=== PATIENT | male | born 1985 | race Caucasian/White ===

== ENCOUNTER 2022-05-04 10:51 | Emergency (ER) | payer OTHER, SELFPAY ==
[2022-05-04 11:06] VITALS: BP 145/53; PULSE 81; RESP 16; TEMP 36.8; O2SAT 99
--- NOTE | 2022-05-04 12:34 | ED.MALEGU ---
HPI - Male Genitourinary General Chief complaint: Urogenital-Male Stated complaint: uti Time Seen by Provider: 05/04/22 12:34 Source: patient Mode of arrival: ambulatory Limitations: no limitations History of Present Illness HPI Narrative: 36 year old male who presents to [facility] care with complaints of 4 day history of intermittent split stream of urine with complaints of burning and pain with urination. Patient denies any fevers, chills or sweats,no CVA tenderness, no perineal pain, no testicular pain or swelling. Patient denies any concern for STD exposure. MD Complaint: dysuria and other (split stream of urine) Related Data Sexually active: Yes Home Medications Medication Instructions Recorded Confirmed adalimumab 20 mg/0.2 mL See Rx Instructions subcut .COMPLEX 07/26/21 05/04/22 subcutaneous syringe kit (Humira(CF)) Allergies Allergy/AdvReac Type Severity Reaction Status Date / Time No Known Allergies Allergy Mild Verified 05/04/22 12:38 Review of Systems Review of Systems: CONSTITUTIONAL: Denies fever, chills, or sweats. EYES: Denies visual changes, redness, or discharge. ENT: Denies rhinorrhea, congestion, sore throat, or otalgia. CARDIOVASCULAR: Denies chest pain, palpitations, or edema. RESPIRATORY: Denies cough or dyspnea. GASTROINTESTINAL: Denies abdominal pain, nausea, vomiting, or diarrhea. GENITOURINARY: Positive for dysuria no hematuria, split stream of urine SKIN: Denies rash or itching. MUSCULOSKELETAL: Denies back pain, joint pain, or myalgia. NEUROLOGIC: Denies headache, numbness, or weakness. PSYCHIATRIC: Denies anxiety or depression. All systems reviewed & are unremarkable except as noted in HPI and below [facility] Past Medical History Medical History (Updated 05/06/22 @ 15:15 by Demetrice Eaton NP) Ankle fracture right ORIF with plate Ulcerative colitis Family History Family History Father Hypertension Cerebrovascular accident Grandparent Hypertension Social History Social History (Updated 05/06/22 @ 15:11 by Demetrice Eaton NP) Smoking status: Never smoker Alcohol intake: current Substance use: never Gender identity (if verbalized by the patient): Male Comments At time of signature, agree with nursing past medical, surgical, social and family history. There is no relevant family history pertinent to the presenting complaint Exam Narrative: GENERAL: Well-appearing, well-nourished, and in no acute distress. HEAD: Normocephalic, atraumatic. EYES: PERRLA and EOMI. ENT: Nares clear, no rhinorrhea or epistaxis. Mucous membranes moist.TM's normal with good light reflex, throat pink with no lesions or tosnil swelling NECK: Supple.no lymphadenopathy CHEST: Clear to auscultation. No respiratory distress.[id number]% on room air HEART: Regular rate and rhythm. No murmur heard. Normal peripheral pulses. ABDOMEN: Soft, nontender, nondistended, normal active bowel sounds. No CVA tenderness on exam EXTREMITIES: Normal range of motion. No edema. SKIN: Warm, dry, no rash. NEURO: No focal deficits. Alert and oriented x3. Course Course Level of Care: Express Care Visit Vital Signs Vital signs: Vital Signs Temperature 36.8 C 05/04/22 11:06 Pulse Rate 81 05/04/22 11:06 Respiratory Rate 16 05/04/22 11:06 Blood Pressure 145/53 H 05/04/22 11:06 Pulse Oximetry 99 05/04/22 11:06 Oxygen Delivery Room Air 05/04/22 11:06 Temperature 36.8 C 05/04/22 11:06 Pulse Rate 81 05/04/22 11:06 Respiratory Rate 16 05/04/22 11:06 Blood Pressure 145/53 H 05/04/22 11:06 Pulse Oximetry 99 05/04/22 11:06 Oxygen Delivery Room Air 05/04/22 11:06 MDM - Male Genitourinary Differential Diagnosis Differential diagnosis: Likely urinary tract infection, urethritis, prostatitis and other (Split urination) Medical Records Attestation: I reviewed the patient's medical records. Lab Data Attestation: I
== END 2022-05-04 13:00 | disposition home or self-care (01) ==
PROVIDERS: Emergency Provider Registered Nurse
DX: N34.2 Other urethritis (principal)
CPT/HCPCS: 81003; 87086; 99213; G0463

== ENCOUNTER 2022-08-25 15:47 | Emergency (ER) | payer OTHER, SELFPAY ==
[2022-08-25 16:55] VITALS: BP 117/66; PULSE 84; RESP 16; TEMP 36.7; O2SAT 100
--- NOTE | 2022-08-25 17:37 | ED.GENADULT ---
HPI - General Adult General Chief complaint: Upper Respiratory Infection Stated complaint: flu like sx Time Seen by Provider: 08/25/22 17:37 Source: patient Mode of arrival: ambulatory Limitations: no limitations History of Present Illness HPI narrative: 29-year-old male patient presents to the [facility] with complaints of cold symptoms and flu-like symptoms since yesterday. Patient states he has had chills, body aches. Patient states he has not really measured his temperature. Patient states he has had runny nose, slight cough headache. Patient states that his son is at home is positive for flu A. Patient came in to be tested today because he would like Tamiflu. Related Data Home Medications Medication Instructions Recorded Confirmed adalimumab 20 mg/0.2 mL See Rx Instructions subcut .COMPLEX 07/26/21 07/12/22 subcutaneous syringe kit (Humira(CF)) azelastine-fluticasone 137 mcg-50 intranasal 08/25/22 mcg/spray nasal spray Allergies Allergy/AdvReac Type Severity Reaction Status Date / Time No Known Allergies Allergy Mild Verified 07/12/22 13:04 Review of Systems Review of Systems: CONSTITUTIONAL: Denies fever, positive body aches and chills, denies sweats. EYES: Denies visual changes, redness, or discharge. ENT: Positive rhinorrhea, congestion, sore throat, denies otalgia. CARDIOVASCULAR: Denies chest pain, palpitations, or edema. RESPIRATORY: Positive cough, denies dyspnea. GASTROINTESTINAL: Denies abdominal pain, nausea, vomiting, or diarrhea. GENITOURINARY: Denies dysuria or hematuria. SKIN: Denies rash or itching. MUSCULOSKELETAL: Denies back pain, joint pain, or myalgia. NEUROLOGIC: Positive headache, numbness, or weakness. PSYCHIATRIC: Denies anxiety or depression. [facility] Past Medical History Medical History Ankle fracture right ORIF with plate Ulcerative colitis Family History Family History Father Hypertension Cerebrovascular accident Grandparent Hypertension Social History Social History Smoking status: Never smoker Alcohol intake: current Substance use: never Gender identity (if verbalized by the patient): Male Comments At the time of my signature I agree with nursing past medical history, surgical, social, and family history. There is no relevant family history pertinent to the presenting complaint. Exam Narrative: GENERAL: Well-appearing, well-nourished, and in no acute distress. HEAD: Normocephalic, atraumatic. EYES: PERRLA and EOMI. ENT: Nares with erythema and edema noted bilaterally, no rhinorrhea or epistaxis. Mucous membranes moist. Posterior pharynx no erythema, tonsillar enlargement, exudates or lesions present. Bilateral TMs are clear with no erythema or foreign bodies in the canal. NECK: Supple. No lymphadenopathy CHEST: Clear to auscultation. No respiratory distress. Patient able talk in complete sentences. HEART: Regular rate and rhythm. No murmur heard. Normal peripheral pulses. ABDOMEN: Soft, nontender, nondistended, normal active bowel sounds. EXTREMITIES: Normal range of motion. No edema. SKIN: Warm, dry, no rash. NEURO: No focal deficits. Alert and oriented x3. Course Course Level of Care: Express Care Visit Vital Signs Vital signs: Vital Signs Temperature 36.7 C 08/25/22 16:55 Pulse Rate 84 08/25/22 16:55 Respiratory Rate 16 08/25/22 16:55 Blood Pressure 117/66 08/25/22 16:55 Pulse Oximetry 100 08/25/22 16:55 Oxygen Delivery Room Air 08/25/22 16:55 Temperature 36.7 C 08/25/22 16:55 Pulse Rate 84 08/25/22 16:55 Respiratory Rate 16 08/25/22 16:55 Blood Pressure 117/66 08/25/22 16:55 Pulse Oximetry 100 08/25/22 16:55 Oxygen Delivery Room Air 08/25/22 16:55 Vital signs reviewed Medical Decision Making MDM Narrative Medic
== END 2022-08-25 17:56 | disposition home or self-care (01) ==
PROVIDERS: Emergency Provider Nurse Practitioner Family
DX: J06.9 Acute upper respiratory infection, unspecified (principal); Z20.822 Contact with and (suspected) exposure to COVID-19
CPT/HCPCS: 87081; 87426; 87804; 87880; 99213; C9803; G0463

== ENCOUNTER 2023-10-30 08:29 | Emergency (ER) | payer OTHER, SELFPAY ==
--- NOTE | 2023-10-30 09:00 | ED.GENADULT ---
HPI - General Adult General Chief complaint: Upper Respiratory Infection Stated complaint: Sore Throat Source: patient, RN notes reviewed and old records reviewed Mode of arrival: ambulatory Limitations: no limitations History of Present Illness HPI narrative: 38-year-old male presents to [facility] Care with complaint of sore throat and fever that started yesterday. Patient states highest fever was 100.4. Patient taking Sudafed with no relief. Patient denies any other complaints. MD complaint: sore throat Onset (ago): day(s) (1-2) Related Data Allergies Allergy/AdvReac Type Severity Reaction Status Date / Time No Known Allergies Allergy Mild Verified 10/30/23 08:51 Review of Systems Constitutional: Constitutional: Reports no additional constitutional complaints, Denies body ache(s), Denies chills, Reports fatigue, Denies fever(s) and Denies headache(s) Eyes: Eyes: Reports no additional eye complaints and Denies blurry vision ENT: Reports system reviewed and no additional complaints, except as documented, Denies vertigo, Denies dizziness, Denies ear discharge, Denies otalgia, Denies facial pain, Denies headache(s), Denies nasal congestion, Denies nasal discharge, Denies sinus pain, Denies sinus pressure and Reports sore throat Cardiovascular: Cardiovascular: Reports no additional cardiovascular complaints, Denies chest pain, Denies chest pain at rest, Denies rapid heart rate and Denies dyspnea Respiratory: Respiratory: Reports no additional respiratory complaints, Denies chest congestion, Denies cough, Denies pain on inspiration, Denies pain with cough and Denies dyspnea Gastrointestinal: Gastrointestinal: Denies abdominal pain, Denies diarrhea, Denies nausea and Denies vomiting Integumentary/Breasts: Skin/Breast: Denies rash Neurologic: Reports system reviewed and no additional complaints, except as documented, Denies vertigo, Denies dizziness and Denies headache(s) Endocrine: Endocrine: Denies fatigue PMF Past Medical History Medical History Ankle fracture right ORIF with plate Ulcerative colitis Family History Family History Father Hypertension Cerebrovascular accident Grandparent Hypertension Social History Social History Smoking status: Never smoker Alcohol intake: current Substance use: never Gender identity (if verbalized by the patient): Male Comments At the time of my signature, I reviewed and agree with the nursing past medical, surgical, social, and family history. There is no relevant family history pertinent to the patient complaint. Exam Const: General: cooperative, healthy appearing, no acute distress and well nourished Nutritional Appearance: well nourished Orientation/consciousness: patient oriented x3 Limitations: no limitations HENMT: Head: normal to inspection and normocephalic Ears: external ears normal, TM's normal bilaterally, mastoids normal and Abnormal EAC present Face/Nose/Sinus: normal facial exam Face and sinus: normal facial exam Mouth: Yes Normal oral and palatal mucosa present, Yes oropharynx normal and Yes moist mucous membranes Throat: uvula midline, abnormal tonsil bilateral erythema, posterior oropharynx abnormal erythema and no uvular edema Eyes: General: appearance normal, both eyes and all related structures Sclera: sclerae normal Pupils: Equal, round and reactive pupils present Resp: Effort & Inspection: normal respiratory effort, able to speak in complete sentences, no audible wheezes, no cough, no respiratory distress and no retractions Auscultation: clear to auscultation bilaterally, no crackles, no rales, no rhonchi and no wheezes Cardio: Rate: regular rate Rhythm: regular rhythm Skin: General skin exam: normal color and no rashes or lesions noted Neuro: General: patient oriente
[2023-10-30 09:05] VITALS: BP 141/63; PULSE 89; RESP 16; TEMP 37.2; O2SAT 98
== END 2023-10-30 09:30 | disposition home or self-care (01) ==
PROVIDERS: Emergency Provider Registered Nurse
DX: J02.0 Streptococcal pharyngitis (principal)
CPT/HCPCS: 87880; 99213; G0463

== ENCOUNTER 2023-11-18 08:07 | Emergency (ER) | payer OTHER, SELFPAY ==
[2023-11-18 08:16] VITALS: BP 130/62; PULSE 78; RESP 16; TEMP 36.7; O2SAT 99
--- NOTE | 2023-11-18 08:16 | ED.URI ---
HPI - URI/Sore Throat General Chief Complaint: Upper Respiratory Infection Stated Complaint: Sore Throat History of Present Illness HPI Narrative: 38 y/o male presented for c/o sore throat nasal congestion. Denies cough, n/v/d/f/c. Positive strep 2 weeks ago. Related Data Allergies Allergy/AdvReac Type Severity Reaction Status Date / Time No Known Allergies Allergy Mild Verified 11/18/23 08:31 Review of Systems Review of Systems: CONSTITUTIONAL: Denies body aches, fever, chills, or sweats. EYES: Denies visual changes, redness, or discharge. ENT: Reports sore throat Denies rhinorrhea, congestion, or otalgia. CARDIOVASCULAR: Denies chest pain, palpitations, or edema. RESPIRATORY: Denies dyspnea. GASTROINTESTINAL: Denies abdominal pain, nausea, vomiting, or diarrhea. SKIN: Denies rash, itching, or wounds. MUSCULOSKELETAL: Denies back pain, joint pain, or myalgia. NEUROLOGIC: Denies headache PMFSH Past Medical History Medical History Ankle fracture right ORIF with plate Ulcerative colitis Family History Family History Father Hypertension Cerebrovascular accident Grandparent Hypertension Social History Social History Smoking status: Never smoker Alcohol intake: current Substance use: never Gender identity (if verbalized by the patient): Male Exam Narrative: GENERAL: well-appearing, no acute distress. EYES: conjunctivae clear ENT: Mucous membranes moist. TM pearly avitia with normal light reflex bilaterally; no tragal tenderness. Oropharynx erythematous without lesions. Tonsils enlarged 1+ and without exudate. No drooling, no hoarseness, no trismus, uvula midline. No tripod positioning, hot potato voice, or soft palate swelling. NECK: Supple. No lymphadenopathy CHEST: Clear to auscultation, breath sounds equal. No respiratory distress, speaks in full sentences. HEART: Regular rate and rhythm. No murmur heard. SKIN: Warm, dry, no rash. NEURO: Alert and oriented x3. Course Course Emergency Course: Patient is aware of diagnosis, understands and agrees to treatment plan. Anticipatory guidance given. Patient agrees to follow-up as directed and is aware of reasons to seek care at the emergency department. Portions of this record may have been created with voice recognition software Level of Care: Express Care Visit Vital Signs Vital signs: Vital Signs Oxygen Delivery Room Air 11/18/23 08:15 Temperature 98.1 F 11/18/23 08:16 Pulse Rate 78 11/18/23 08:16 Respiratory Rate 16 11/18/23 08:16 Blood Pressure 130/62 11/18/23 08:16 Pulse Oximetry 99 11/18/23 08:16 Oxygen Delivery Room Air 11/18/23 08:16 MDM - URI/Sore Throat MDM Narrative Medical decision making narrative: POS strep result reviewed with pt. Rx Augmentin. Advise supportive treatments. Patient is appropriate for outpatient treatment and follow-up. Differential Diagnosis Differential diagnosis: Likely upper respiratory infection, viral infection and pharyngitis Lab Data Labs: Strep Screen Positive Group A Strep *(Reference Range: Negative)* Discharge Plan Discharge Clinical Impression: Strep pharyngitis Patient Disposition: Home, Self-Care Condition: Stable Instructions: Antibiotic Form, Strep Throat (ED) Additional Instructions: - Take the antibiotic as directed. Fever and sore throat typically resolve within one to three days. Most patients can return to work, school, or daycare after 12 to 24 hours of antibiotic therapy, provided you are fever free and otherwise well. -Eat and drink things that are easy to swallow, like soft foods, cool liquids, tea with honey, or popsicles . -Salt water gargles and/or may use topical anesthetic ( Chlorasep
== END 2023-11-18 08:32 | disposition home or self-care (01) ==
PROVIDERS: Emergency Provider Nurse Practitioner Family
DX: J02.0 Streptococcal pharyngitis (principal)
CPT/HCPCS: 87880; 99213; G0463